=== PATIENT | female | born 1935 | race Caucasian/White ===

== ENCOUNTER 2020-09-22 18:04 | Inpatient (IN) | payer MEDICARE, OTHER ==
[~2020-09-22] VITALS: Ht 165.1 cm; Wt 66.7 kg
--- NOTE | ~2020-09-22 | EMS ---
[place] [address] EMS Patient Care Report Name: BETZY MCKEON Room: [place] [address] ADM IN [facility]#: [id number] Admission: 09/22/20 Attend Phys: Joaquina Shell Discharge: Date of : 35 Report #: [id number] THIS REPORT FOR: //name// Report Transmitted: 09/22/2020 19:40 EMS Care Summary [facility] Incident [id number] @ 09/22/2020 16:52 Incident Location [address] [place] [address] Patient BETZY MCKEON Female, 84 Years 1935 Patient Address [address] [place] [address] Patient History Thyroid Disease,Atrial Fibrillation, Patient Allergies No known allergies, Patient Medications Levothyroxine, Aspirin, Chief Complaint Shortness of breath Disposition Transported No Lights/[place] Dispatch Reason Breathing Problem Transported To [facility] Narrative Dispatch: [facility] was dispatched for a female patient experiencing difficulty breathing. Med 1 copied tones and went en route emergent. Upon arrival, EMS [place] [address] EMS Patient Care Report Name: BETZY MCKEON Room: [facility] IN [facility]#: [id number] Admission: 09/22/20 Attend Phys: Joaquina Shell Discharge: Date of : 35 Report #: [id number] Chief Complaint: Med 1 arrived on scene to find the patient sitting upright in her chair. Patient was alert and did not appear to be in any distress or discomfort. Patient states she has weakness and feels like her "heart is beating too fast." Patient states she "thinks she has Covid" but has no known exposures. History of present illness/SHANNON: Patient was assessed by HEMS prior in the day, patient stated she did not want transported at that time. Patient states she still has weakness and after talking with her daughter, she decided she needs to be seen in and ED. Patient states she has a history of atrial fibrillation. Assessment: Airway: Clear, patent, and self maintained. Breathing: Clear, and equal bilaterally. Non labored. Circulation: Skin is pink, warm, and dry. Strong radial pulses. Disability: A&OX4, GCS 15. Exposures: No life threats were found. See "assessments" tab for further. Reason for ambulance: Patient is experiencing shortness of breath with generalized weakness. Patient is requesting EMS transport to [facility] in [place]. Treatments: ALS assessment. 20G IV LAC. 12 lead EKG showing atrial fibrillation. ETCO2 at 2liters nasal cannula showing non obstructed waveforms. Vitals monitored throughout transport. Summary: With the assistance of EMS, the patient was able to be placed onto the cot, secured in place, and placed into the ambulance for transport. The patient was placed onto the monitor and a 12 lead EKG was performed showing atrial fibrillation. An IV was established. Med 1 went en route non emergent to [facility]. The patient's overall condition remained the same throughout transport. The patient stated she "felt better" after "she relaxed." Radio report was given and no further questions or orders were received. Med 1 arrived at destination and the patient was taken to room 13 in the ED. The patient was able to self ambulate onto the bed and report was given. Signatures and paperwork were received. Med 1 returned back in service. Initial Vitals @17:25P: 59,R: 31,EtCO2: 24,SpO2: 99, @17:16 @17:05P: 74,SpO2: 95, @17:19P: 100,R: 18,BP: 146/69,EtCO2: 33,SpO2: 97,FL Suspected: false @17:30P: 84,SpO2: 99,FL Suspected: false @17:48P: 62,R: 26,BP: 123/73,EtCO2: 32,SpO2: 99,FL Suspected: false @17:03R: 20,BP: 140/70,GCS: 15,Temp: 99.5F,Glucose: 102,Revised Trauma: 12, [place] [address] EMS Patient Care Report Name: BETZY MCKEON Gregory Room: [place] [address] ADM [place] ..#: [id number] Admission: 09/22/20 Attend Phys: Joaquina Shell Discharge: Date of : 35 Report #: [id number] @17:36P: 83,R: 24,BP: 143/107,EtCO2: 34, @17:43R: 25,BP: 160/74,EtCO2: 32, @17:17P: 101,R: 24,EtCO2: 36,FL Suspected: false @17:14P: 64,SpO2: 99,FL Suspected: false Assessments @17:05MENTAL:Person Oriented,Time Oriented,Event Oriented,Place Oriented,SKIN:HEENT:LUNG SOUNDS:ABDOMEN:PELVIS//GI:EXTREMITIES:Capillary Refill: Right Upper: < 2 Sec,PULSE:Radial: 2+ Normal,NEURO:@17:49MENTAL:Person Oriented,Time Oriented,Place Oriented,Event Oriented,SKIN:HEENT:LUNG SOUNDS:ABDOMEN:PELVIS//GI:EXTREMITIES:Capillary Refill: Right Upper: < 2 Sec,PULSE:Radial: 2+ Normal,NEURO: Impression Shortness of breath Procedures @17:01ALS AssessmentResponse: UnchangedSucceeded@17:15Oxygen FlowRate: 2 Device: CO2 Nasal Cannula Response: UnchangedSucceeded@17:14Saline Lock 0cc (20 ga) Site: Antecubital-LeftResponse: UnchangedSucceeded@17:1912-Lead ECGResponse: UnchangedSucceeded@17:1412-Lead ECGResponse: UnchangedSucceeded@17:1612-Lead ECGResponse: UnchangedSucceeded@17:1712-Lead ECGResponse: UnchangedSucceeded Timeline 16:52,Call Received 16:52,Dispatched 16:53,En Route 16:56,On Scene 16:57,At Patient 17:01,ALS Assessment,Response: UnchangedSucceeded, 17:03,BP: 140/70 M,PULSE: ,RR: 20 R,SPO2: Ox,ETCO2: ,B,PAIN: ,GCS: 15, 17:05,BP: / M,PULSE: 74,RR: R,SPO2: 95 Ox,ETCO2: ,BG: ,PAIN: ,GCS: , 17:14,12-Lead ECG,Response: UnchangedSucceeded, 17:14,BP: / M,PULSE: 64,RR: R,SPO2: 99 Ox,ETCO2: ,BG: ,PAIN: ,GCS: , 17:14,Saline Lock 0cc 20 ga Site: Antecubital-Left,Response: UnchangedSucceeded, 17:15,Oxygen FlowRate: 2 Device: CO2 Nasal Cannula Response: UnchangedSucceeded, 17:16,12-Lead ECG,Response: UnchangedSucceeded, 17:16,BP: / M,PULSE: ,RR: R,SPO2: Ox,ETCO2: ,BG: ,PAIN: ,GCS: , 17:17,12-Lead ECG,Response: UnchangedSucceeded, 17:17,BP: / M,PULSE: 101,RR: 24 R,SPO2: Ox,ETCO2: 36 ,BG: ,PAIN: ,GCS: , 17:18,Depart Scene 17:19,12-Lead ECG,Response: UnchangedSucceeded, 17:19,BP: 146/69 M,PULSE: 100,RR: 18 R,SPO2: 97 Ox,ETCO2: 33 ,BG: ,PAIN: ,GCS: , 17:25,BP: / M,PULSE: 59,RR: 31 R,SPO2: 99 Ox,ETCO2: 24 ,BG: ,PAIN: ,GCS: , 17:30,BP: / M,PULSE: 84,RR: R,SPO2: 99 Ox,ETCO2: ,BG: ,PAIN: ,GCS: , [place] [address] EMS Patient Care Report Name: BETZY MCKEON Gregory Room: [place] [address] ADM [place] [facility]#: [id number] Admission: 09/22/20 Attend Phys: Joaquina Shell Discharge: Date of : 35 Report #: [id number] 17:36,BP: 143/107 M,PULSE: 83,RR: 24 R,SPO2: Ox,ETCO2: 34 ,BG: ,PAIN: ,GCS: , 17:43,BP: 160/74 M,PULSE: ,RR: 25 R,SPO2: Ox,ETCO2: 32 ,BG: ,PAIN: ,GCS: , 17:48,BP: 123/73 M,PULSE: 62,RR: 26 R,SPO2: 99 Ox,ETCO2: 32 ,BG: ,PAIN: ,GCS: , 17:57,At Destination 18:39,Call Closed Disclaimer v1.1 Copyright 2020 [employer] This EMS Care Summary contains data elements from the applicable legal record (which may be displayed differently). It is designed to provide pertinent information for the following purposes: continuity of care, clinical quality, and state data reporting. The complete legal record is available to ED staff and administrators of the receiving hospital in [employer] Patient Tracker. All data is provided "as is."
[~2020-09-22 18:04] MED LIST: ASPIR 8181 MG PO; ASPIRIN81 M2 PO; CEPACOL SORE T1 EAC7 PO; LEVAQUIN 500 M500 M1 PO; MULTI VITAMIN1 EACH PO; MULTIVITAMINS PO; SORINE 80 MG TA80 M1 PO; SYNTHROID100 MC1 PO; TESSALON PERLE100 MG PO; TYLENOL325 MG PO; XARELTO10 MG PO
[2020-09-22 18:10] VITALS: BP 179/88
[2020-09-22] MEDS ORDERED: ASPIR-TRIN325 MG PO (18:13)
[2020-09-22 19:15] LABS: HEMATOCRIT 38.8 % (37.0-47.0); HEMOGLOBIN 13.3 gm/dL (12.0-15.0); MCH 31.8 pg (26.0-34.0); MCHC 34.2 g/dL (28.0-37.0); MCV 92.8 fL (80.0-100.0); NUCLEATED RBCS 0 /100WBC; PLATELET COUNT* 150 thou/uL (150-400); RBC 4.19 mil/uL (4.20-5.00); WBC 3.2 thou/uL (4.0-11.0)
[2020-09-22 19:25] LABS: APTT 27.4 Seconds (25.0-31.3); PROTIME 10.2 Seconds (9.20-11.50)
[2020-09-22 19:33] LABS: CALCIUM 8.7 mg/dL (8.5-10.1); POTASSIUM 3.9 mmol/L (3.5-5.1)
[2020-09-22 19:37] LABS: ALBUMIN 3.7 g/dL (3.4-5.0); TOTAL BILIRUBIN 0.3 mg/dL (<0.1-1.0); TOTAL PROTEIN 6.9 g/dL (6.4-8.2)
[2020-09-22 20:01] LABS: ABSOLUTE LYMPHOCYTES 1.5 thou/uL (0.8-5.3); ABSOLUTE MONOCYTES 0.8 thou/uL (0.0-1.2); ATYPICAL LYMPHS 5 %
[2020-09-22 20:02] LABS: PLATELET ESTIMATE ADEQUATE
[2020-09-22 23:02] VITALS: BP 153/65
[2020-09-23 03:48] VITALS: BP 125/57
[2020-09-23 08:45] VITALS: BP 131/67
[2020-09-23 09:25] VITALS: BP 131/67
[2020-09-23 11:00] VITALS: BP 140/59
--- NOTE | 2020-09-23 14:07 | EKG ---
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 : 1935 Requested By: yRan Crowder Order Number: [id number] MD: Tomy Vasquez Measurements Intervals [place] Rate: 78 P: 152 MO: 185 QRS: 49 QRSD: 83 T: 48 QT: 405 QTc: 462 Interpretive Statements Sinus or ectopic atrial rhythm Ventricular premature complex Nonspecific T abnormalities, anterior leads Compared to ECG 10/31/2015 07:42:18 Ectopic atrial rhythm now present T-wave abnormality now present Sinus rhythm no longer present Right ventricular hypertrophy no longer present Electronically Signed On 09-23-2020 14:07:08 [employer] 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
[2020-09-23 18:01] VITALS: BP 136/64
--- NOTE | 2020-09-23 18:27 | NUR ---
PT CAME TO FLOOR FROM ED, AO X4 FROM HOME WHERE SHE HAD STARTED FEELING BAD THE PAST COUPLE DAYS. SHE WENT TO FAMILY MD WHO DIDNT THINK SHE HAD COVID SO SHE WENT HOME AND CONTINUED TO DECLINE. PT IS ON ROOM AIR, SATTING APPROPRIATELY, VSS AND DENIES PAIN. SHE IS GETTING FLUIDS AND ANTIBIOTICS AND STEROIDS. PT IS SLOW BUT STEADY ON HER FEET AMBULATING TO THE TOILET BY HERSELF. SHE HAS EATEN MOST OF HER MEAL TRAYS TODAY. PT MAY DISCHARGE THURSDAY
[2020-09-23 21:16] VITALS: BP 148/94
[2020-09-24] VITALS (7 sets, daily range): BP systolic 131–155; BP diastolic 55–66
--- NOTE | 2020-09-24 05:05 | NUR ---
PT SLEPT WELL ALL SHIFT. NO REPORTS OF DIARRHEA, NAUSEA OR VOMITING. SHE IS ON ROOM AIR, ALERT AND ORIENTED. SKIN IS GOOD. SHE IS UP STANDBY ASSIST TO BATHROOM. D/C FLUIDS. RECEIVED MEDS ORDERED. SHE REPORTS FEELING MUCH BETTER.
--- NOTE | 2020-09-24 07:30 | NUR ---
ASSUMED CARE OF PATIENT. UP INDEPENDENTLY, ROOM AIR. [facility] WILL CHECK ON HER AND TRANSPORT HOME. SHE FEELS BETTER.
--- NOTE | 2020-09-24 12:49 | NUR ---
SPPOKE WITH DAUGHTER,ABIDA, ON PHONE. SHE STATED HER MOM LIVES ALONE. SHE IS VERY INDEPENDENT. COOKS,DRIVES, SHOPS. NO USE OF DME. HAS NO HX OF HOME HEALTH OR SNF. ABIDA DOES NOT FEEL HER MOM WOULD NEED HH OR WANT IT. SHE IS HOPING SHE DOESN'T NEED O2 AT HOME. POSSIBILITY OF DISCHARGE TODAY. TOLD ABIDA WE WOULD CALL HER A LITTLE LATER IF SHE WAS OR NOT. THANKED ME FOR MY CALL.
[2020-09-24] MEDS ORDERED: ZINC SULFATE220 MG PO (15:56)
[2020-09-24] MEDS ORDERED: VITAMIN C500 M1 PO (15:56)
[2020-09-24] MEDS ORDERED: VITAMIN D21250 MC1 PO (15:56)
[2020-09-24] MEDS ORDERED: DORYX MPC120 MG PO (16:01)
[2020-09-24] MEDS ORDERED: ASPIRIN-DIPYRI1 EACH PO (16:01)
--- NOTE | 2020-09-24 17:10 | NUR ---
PATIENT DISCHARGED VIA WHEELCHAIR WITH [facility]. EDUCATED PATIENT ON COVID ISOLATION. PER DR UNTIL 10/04. PATIENT VERBALIZED UNDERSTANDING. CLARIFIED CONTINUING HOME ASA WITH ASA/DIPYRIDAMOLE. INSTRUCTED HER TO HOLD HER HOME ASA UNTIL SHE COMPLETES ASA/DIPYRIDAMOLE. VERBALIZED UNDERSTANDING.
[2020-09-25 00:32] VITALS: BP 141/74
== END 2020-09-24 17:10 | disposition home or self-care (01) | DRG 177 ==
LOC: M.ERS 18:04 → M.ORTHSURG 19:32 → M.TBA-ER 19:32 → M.ORTHSURG 09-23 09:45
PROVIDERS: Family Medicine; ADMIT Internal Medicine; ATTEND Internal Medicine
DX: U07.1 COVID-19 (principal); J96.21 Acute and chronic respiratory failure with hypoxia; I48.0 Paroxysmal atrial fibrillation; E03.9 Hypothyroidism, unspecified; Z79.82 Long term (current) use of aspirin; Z79.899 Other long term (current) drug therapy; Z72.89 Other problems related to lifestyle

== ENCOUNTER → 2021-09-17 | Outpatient (CLI) | payer MEDICARE, OTHER ==
[~2021-09-17] MED LIST changes: +ASPIR-TRIN325 MG PO; +ASPIRIN-DIPYRI1 EACH PO; +DORYX MPC120 MG PO; +VITAMIN C500 M1 PO; +VITAMIN D21250 MC1 PO; +ZINC SULFATE220 MG PO
--- NOTE | 2021-09-17 13:15 | 2DMMODE ---
[place] [address] 2 D/M-MODE ECHOCARDIOGRAM Name: KARLOTavoBETZY Room: [facility]#: [id number] Admission: 09/17/21 Attend Phys: Venessa Muniz, Discharge: Date of : 35 Date of Service: 09/17/21 1315 Report #: [id number] THIS REPORT FOR: cc: Arnie Meza,Arnie Ortega,Bernardo Clinton MD [facility] ~ APPROVED REPORT Study performed: 09/17/2021 12:17:05 EXAM: Comprehensive 2D, Doppler, and color-flow Echocardiogram Patient Location: Out-Patient BSA: 1.75 HR: 77 bpm BP: 120/70 mmHg Other Information Study Quality: Good Indications Atrial Fibrillation 2D Dimensions IVSd: 10.73 (7-11mm) LVOT Diam: 20.45 (18-24mm) LVDd: 41.08 mm PWd: 10.34 (7-11mm) Ascending Ao: 29.92 (22-36mm) LVDs: 27.51 (25-40mm) Aortic Root: 29.90 mm Volumes Left Atrial Volume (Systole) LA ESV Index: 18.00 mL/m2 Aortic Valve AoV Peak Keith.: 0.93 m/s AO Peak Gr.: 3.45 mmHg LVOT Max P.92 mmHg AO Mean Gr.: 1.81 mmHg LVOT Mean P.87 mmHg LVOT Max V: 0.69 m/s AO V2 VTI: 18.36 cm LVOT Mean V: 0.42 m/s WILFRID (VTI): 2.39 cm2 LVOT V1 VTI: 13.34 cm Mitral Valve E/A Ratio: 1.85 [place] [address] 2 D/M-MODE ECHOCARDIOGRAM Name: BETZY MCKEON Room: [facility]#: [id number] Admission: 09/17/21 Attend Phys: Venessa Muniz, Discharge: Date of : 35 Date of Service: 09/17/21 1315 Report #: [id number] MV Decel. Time: 128.46 ms MV E Max Keith.: 0.78 m/s MV PHT: 37.25 ms MVA (PHT): 5.91 cm2 TDI E/Lateral E': 5.20 E/Medial E': 13.00 Medial E' Keith.: 0.06 m/s Lateral E' Keith.: 0.15 m/s Pulmonary Valve PV Peak Keith.: 0.69 m/s PV Peak Gr.: 1.92 mmHg Tricuspid Valve RAP Estimate: 5.00 mmHg TR Peak Gr.: 19.79 mmHg RVSP: 24.79 mmHg PA Pressure: 24.79 mmHg Left Ventricle The left ventricle is normal size. There is normal LV segmental wall motion. There is normal left ventricular wall thickness. Left ventricular systolic function is normal. LVEF is 55-60%. This study is not technically sufficient to allow evaluation of the LV diastolic function due to atrial fibrillation. Right Ventricle The right ventricle is normal size. The right ventricular systolic function is normal. Atria The left atrium size is normal. The right atrium size is normal. Aortic Valve The aortic valve is normal in structure. Trace aortic regurgitation. There is no aortic valvular stenosis. Mitral Valve The mitral valve is normal in structure. Mild mitral regurgitation. No evidence of mitral valve stenosis. Tricuspid Valve The tricuspid valve is normal in structure. Mild tricuspid regurgitation[place] [address] 2 D/M-MODE ECHOCARDIOGRAM Name: BETZY MCKEON Room: [facility]#: [id number] Admission: 09/17/21 Attend Phys: Venessa Muniz, Discharge: Date of : 35 Date of Service: 09/17/21 1315 Report #: [id number] The pulmonary valve is normal in structure. Mild pulmonic regurgitation. Great Vessels The aortic root is normal in size. IVC is normal in size and collapses >50% with inspiration. Pericardium There is no pericardial effusion. <Conclusion> The left ventricle is normal size. There is normal left ventricular wall thickness. Left ventricular systolic function is normal. LVEF is 55-60%. Trace aortic regurgitation. Mild mitral regurgitation. Mild tricuspid regurgitation. Mild pulmonic regurgitation. IVC is normal in size and collapses >50% with inspiration. <ELECTRONICALLY SIGNED> By: Bernardo Pillai MD, FACC 09/17/21 1315 14 14 Bernardo Pillai MD, FACC /INF
== END ==
LOC: M.CRD 10:26
PROVIDERS: ATTEND Nurse Practitioner
DX: I08.8 Other rheumatic multiple valve diseases (principal); I48.91 Unspecified atrial fibrillation